=== PATIENT | female | born 1990 | race Caucasian/White ===

== ENCOUNTER 2024-09-20 23:25 | Inpatient (IN) | payer BC ==
[2024-09-21] MEDS: ELECTROLYTE-148 SOLN 1,000 ML IV SCH (00:15)
[2024-09-21] MEDS ORDERED: AMPICILLIN SODIUM 2 GM VIAL ONE (00:29)
[2024-09-21] MEDS: AMPICILLIN - 2 GM in SODIUM CHLORIDE 100 ML IVPB ONE (00:30)
[2024-09-21 01:02] LABS: Reticulocyte % 2.04 % (0.5-1.7)
[2024-09-21 01:09] LABS: INR 0.87 (0.83-1.09); PROTHROMBIN TIME (PATIENT) 9.5 SEC (9.7-13.0)
[2024-09-21 01:13] LABS: ABSOLUTE IMMATURE GRANULOCYTES 0.04 x10^3/uL (0.0-0.031); BASOPHILS # 0.04 x10^3/uL (0.01-0.08); EOSINOPHIL % 3.3 % (0.7-5.8); EOSINOPHILS # 0.34 x10^3/uL (0.04-0.36); HEMATOCRIT 34.9 % (34.1-44.9); HEMOGLOBIN 12.1 g/dL (11.2-15.7); MCHC 34.7 g/dl (32.2-35.5); MEAN CELL VOLUME 89.7 fl (79.4-94.8); MEAN PLT VOLUME 13.1 fl (9.4-12.3); MONOCYTE % 8.8 % (4.7-12.5); PLATELET COUNT 230 x10^3/uL (182-369); RDW 12.8 % (12.1-16.8)
[2024-09-21 01:18] LABS: ACTIVATED PTT 29.2 SECONDS (25.2-36.5)
[2024-09-21 01:19] LABS: CALCIUM 9.5 mg/dL (8.5-10.1)
[2024-09-21 01:20] LABS: ALBUMIN 2.7 g/dl (3.4-5.0); BLOOD UREA NITROGEN 14.5 mg/dL (7-18)
[2024-09-21 01:21] VITALS: BMI 33.9
[2024-09-21 01:23] LABS: CREATININE 0.8 mg/dL (0.55-1.3)
[2024-09-21 01:24] LABS: BILIRUBIN,TOTAL 0.3 mg/dL (0.2-1); TOT PROT 6.9 g/dl (6.4-8.2)
[2024-09-21] MEDS ORDERED: FENTANYL/BUPIVACAINE/NS/PF - PCEA - 50 ML DISP.SYRIN EP ONE (01:29)
[2024-09-21] MEDS ORDERED: NALOXONE HCL 0.4 MG/ML VIAL IVPUSH PRN (01:42)
[2024-09-21 01:49] LABS: EPI CELLS 7 /uL (0-25.1); HYALINE CASTS 0 /uL (0-3.1); PH,URINE 5.5 (5.0-8.0); URINE APPEARANCE CLEAR; URINE BACTERIA 82 /uL (0-1359); URINE BILIRUBIN NEGATIVE (NEGATIVE); URINE COLOR YELLOW; URINE GLUCOSE (UA) NEGATIVE (NEGATIVE); URINE KETONE NEGATIVE (NEGATIVE); URINE LEUK ESTERASE NEGATIVE (NEGATIVE); URINE NITRITE NEGATIVE (NEGATIVE); URINE PROTEIN NEGATIVE (NEGATIVE); URINE RBC 7 /uL (0-23.9); URINE UROBILINOGEN 0.2 mg/dL (0.2-1.0); URINE WBC 5 /uL (0-25.8)
[2024-09-21] MEDS: FENTANYL/BUPIVACAINE/NS/PF - PCEA - 50 ML DISP.SYRIN EP SCH (02:05)
[2024-09-21] MEDS: AMPICILLIN - 1 GM in SODIUM CHLORIDE 100 ML IVPB SCH (03:35)
[2024-09-21] MEDS ORDERED: AMPICILLIN SODIUM 1 GM VIAL ONE (03:36)
[2024-09-21] MEDS ORDERED: OXYTOCIN 20 UNITS in 0.9% NS 20 UNIT/1,000 ML INFUS.BAG IV ONE (03:49)
[2024-09-21] MEDS: OXYTOCIN 20 UNITS in 0.9% NS 20 UNIT/1,000 ML INFUS.BAG IV SCH (04:35)
[2024-09-21] MEDS ORDERED: oxyCODONE HCL 5 MG TABLET PO PRN (04:50)
[2024-09-21] MEDS ORDERED: BISACODYL 10 MG SUPP.RECT RC PRN (04:50)
[2024-09-21] MEDS ORDERED: ACETAMINOPHEN 325 MG TABLET (FP) PO PRN (04:50)
[2024-09-21] MEDS ORDERED: BENZOCAINE 28 GM HEMORRHOIDAL OINTMENT TP PRN (04:50)
[2024-09-21] MEDS: NIFEdipine E.R. 30 MG TABLET PO SCH (04:58)
[2024-09-21 09:48] VITALS: RESP 18
[2024-09-21] MEDS: IBUPROFEN 600 MG TABLET (FP) PO PRN (15:37)
[2024-09-21] MEDS: BENZOCAINE 20% 57 GM BOTTLE TP PRN (15:40)
[2024-09-21] MEDS: WITCH HAZEL 50% (TUCKS) 40 PAD/JAR PAD TP PRN (15:40)
[2024-09-22 07:42] LABS: ABSOLUTE IMMATURE GRANULOCYTES 0.04 x10^3/uL (0.0-0.031); BASOPHILS # 0.05 x10^3/uL (0.01-0.08); EOSINOPHIL % 5.1 % (0.7-5.8); EOSINOPHILS # 0.55 x10^3/uL (0.04-0.36); HEMATOCRIT 33.7 % (34.1-44.9); HEMOGLOBIN 11.4 g/dL (11.2-15.7); MCHC 33.8 g/dl (32.2-35.5); MEAN CELL VOLUME 91.6 fl (79.4-94.8); MEAN PLT VOLUME 12.3 fl (9.4-12.3); MONOCYTE # 0.85 x10^3/uL (0.24-0.86); MONOCYTE % 7.8 % (4.7-12.5); PLATELET COUNT 209 x10^3/uL (182-369)
[2024-09-22] MEDS ORDERED: SENNOSIDES/DOCUSATE COMBO (SENNA PLUS) TABLET (UD) PO PRN (22:00)
[2024-09-23 09:40] VITALS: BP 127/90; PULSE 80; TEMP 98.4
[2024-09-24 12:41] LABS: POC NITRAZINE POS
== END 2024-09-23 12:00 | disposition home or self-care (01) | DRG 807 ==
LOC: JDEL 23:25 → JLDR 23:45 → J3W 09-21 08:10
PROVIDERS: ADMIT Obstetrics & Gynecology; ATTEND Obstetrics & Gynecology
PROC: 10E0XZZ Delivery of Products of Conception, External Approach (ICD-10-PCS; principal; 2024-09-21)
PROC: 0W8NXZZ Division of Female Perineum, External Approach (ICD-10-PCS; 2024-09-21)
DX: O69.81X0 Labor and delivery complicated by cord around neck, without compression, not applicable or unspecified (principal); Z37.0 Single live birth; Z3A.38 38 weeks gestation of pregnancy
CPT/HCPCS: 36415; 59409; 80053; 81003; 82570; 82977; 83010; 83986-QW; 84156; 84550; 85025; 85610; 85730; 86780; 86850; 86900; 86901